=== PATIENT | male | born 1960 | race Caucasian/White ===

== ENCOUNTER 2020-08-06 10:23 | Emergency (ER) | payer OTHER ==
[~2020-08-06] VITALS: Ht 165.1 cm; Wt 70.3 kg
[2020-08-06] MEDS ORDERED: MORPHINE SULFATE 4 MG/ML CPJ (NOT FOR IM USE) IV STA (10:53)
[2020-08-06] MEDS ORDERED: ONDANSETRON HCL 4MG/2ML INJ IV STA (10:53)
[2020-08-06] MEDS ORDERED: MORPHINE SULFATE 4 MG/ML CPJ (NOT FOR IM USE) IV ONE (11:00)
[2020-08-06] MEDS ORDERED: ETOMIDATE 2MG/ML 10ML VIAL IV ONE (11:00)
[2020-08-06 13:31] VITALS: BP 151/84
== END 2020-08-06 13:36 | disposition home or self-care (01) ==
LOC: ER 10:23
DX: S43.004A Unspecified dislocation of right shoulder joint, initial encounter (principal); W06.XXXA Fall from bed, initial encounter; Y93.89 Activity, other specified; Y92.89 Other specified places as the place of occurrence of the external cause; Y99.8 Other external cause status
CPT/HCPCS: 23650; 73030; 93005; 96374; 96375; 96376; 99152; 99285; J2270; J2405; J3490; L3670

== ENCOUNTER 2020-11-03 16:37 | Emergency (ER) | payer OTHER ==
[~2020-11-03] VITALS: Ht 165.1 cm; Wt 71.0 kg
[2020-11-03 20:01] VITALS: BP 146/83
== END 2020-11-03 20:04 | disposition home or self-care (01) ==
LOC: ER 16:37
DX: K62.5 Hemorrhage of anus and rectum (principal); I10 Essential (primary) hypertension
CPT/HCPCS: 99281